=== PATIENT | male | born 1950 | race Caucasian/White ===

== ENCOUNTER 2021-02-02 10:15 | Outpatient (REF) | payer MEDICARE, BC, SELFPAY | END 2021-02-02 10:16 | disposition home or self-care (01) | LOC: HO.HMGCX 10:15 | PROVIDERS: Visit Provider Internal Medicine | DX: Z20.822 Contact with and (suspected) exposure to COVID-19 (principal) | CPT/HCPCS: 36415; C9803; U0003; U0005 ==

== ENCOUNTER 2023-05-08 00:36 | Emergency (ER) | payer MEDICARE, BC, SELFPAY ==
[2023-05-08 01:32] VITALS: BP 157/67; PULSE 59; RESP 16; TEMP 36.5; O2SAT 96; BMI 24.7
--- NOTE | 2023-05-08 01:44 | PC.NURSE ---
Pt comes in complaining of blurriness in the right eye, stated he noticed it when he got home from work around 11:30 PM. Visual acuity test was done resulting in 20/40 in the right eye, 20/25 in the left eye. Pt denies pain, eyes are PERRLA. Pt reported he has a hx of cataracts sx. When I went to talk to pt prior to provider seeing him, pt stated he wanted to leave and he will call his primary care doctor on Tuesday. It was explained to the pt that it is possible there could be an underlying problem, such as a TIA, and it is recommended he stay to be seen by a provider. Pt stated he still wanted to leave and collected his belongings. Pt stated he understands the risks and he will call his primary care. 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
== END 2023-05-08 01:53 | disposition left against medical advice (07) ==
PROVIDERS: Emergency Provider Emergency Medicine
DX: H57.11 Ocular pain, right eye (principal)
CPT/HCPCS: 99281

== ENCOUNTER 2023-11-12 09:11 | Emergency (ER) | payer MEDICARE, BC, SELFPAY ==
--- NOTE | ~2023-11-12 | XR_ITS ---
EXAMINATION: XR CHEST CLINICAL INFORMATION: Cough. COMPARISON: Most recent chest radiograph dated 01/03/2020. TECHNIQUE: 2 views of the chest were obtained. FINDINGS: Faint, somewhat linear opacity within the periphery of the right lung base, favored to represent atelectasis. No large, confluent airspace consolidation. No pleural effusion or pneumothorax. Stable cardiomediastinal silhouette. XR/XR chest 2V IMPRESSION: Faint, somewhat linear opacity within the periphery of the right lung base, favored to represent atelectasis.
[2023-11-12 09:30] VITALS: BP 133/85; PULSE 58; RESP 20; TEMP 36.7; O2SAT 97; BMI 24.2
[2023-11-12 10:19] LABS: COVID-19 Test Negative (Negative); IDNOW Serial# 08D9AD1C; IDNOW Serial# BCCEAD1C; Influenza A Negative (Negative); Influenza B2 Negative (Negative)
--- NOTE | 2023-11-12 10:28 | ED_ITS ---
HPI - URI/Sore Throat General Chief Complaint: Upper Respiratory Symptoms Stated Complaint: cold like symptoms Time Seen by Provider: 11/12/23 09:55 Source: patient Mode of arrival: ambulatory Limitations: no limitations History of Present Illness HPI Narrative: patient is a 73-year-old male who presents emergency department for evaluation of Four days with nonproductive cough, intermittent shortness of breath, body aches, tightness in the upper chest only during episodes of coughing. He denies any known sick contacts. He denies any fevers or chills. Denies headache, dizziness, neck pain, neck stiffness, nausea, vomiting, abdominal pain, numbness or tingling of the extremities, pedal edema, orthopnea, PND. Related Data Previous Rx's Medication Instructions Recorded albuterol sulfate 90 mcg/actuation 2 puff inhalation Q4-6H PRN 11/12/23 aerosol inhaler shortness of breath or wheezing #6.7 grams azithromycin 250 mg tablet See Rx Instructions PO .COMPLEX #6 11/12/23 tabs benzonatate 100 mg capsule 100 mg PO TID PRN cough #20 caps 11/12/23 Allergies Allergy/AdvReac Type Severity Reaction Status Date / Time No Known Allergies Allergy Verified 11/12/23 09:32 [No Known Allergies*] Review of Systems Review of Systems: Yes all other systems are reviewed and are negative [facility] Past Medical History Attestation statement: The following information was validated with the patient. Source: old records reviewed Social History Social History Advance Directives: No Advance Directives Information Provided: No Physical Exam Vital Signs: Vital Signs: Last Vital Signs Temp 98.0 F 11/12/23 09:30 Pulse 58 11/12/23 09:30 Resp 20 11/12/23 09:30 BP 133/85 11/12/23 09:30 Pulse Ox 97 11/12/23 09:30 O2 Del Method Room Air 11/12/23 09:30 BMI result Body Mass Index 24.2 Appearance: Alert.?Oriented to person, place and time. No acute distress.?Normal affect. Eyes: Pupils equal, round and reactive to light.? ENT: TM normal bilaterally. Pharynx normal.?? Neck: Normal inspection.? Neck supple.??No cervical adenopathy CVS: Heart sounds normal. Normal heart rate and rhythm.? Pulses normal.?? Respiratory: No respiratory distress.? Lung sounds clear to auscultation bilaterally?? Abdomen: Soft and non-tender. Normoactive bowel sounds. Skin: Skin warm and dry.? Normal skin color.? ? Extremities: No lower extremity edema.? Neuro: Moves all extremities spontaneously. Sensation intact bilaterally. No motor deficits. Ambulates with normal steady gait. Medical Decision Making Medical Decision Making MDM Narrative: Patient is a 73-year-old male with past medical history of hypertension, hyperlipidemia, BPH, presenting for evaluation of upper respiratory symptoms. COVID-19 testing negative. Influenza testing negative. chest x-ray reveals no compelling evidence of pneumonia. At this time history and physical exam not consistent with CHF/ACS/PE/pneumonia. Well-appearing, nontoxic, afebrile, no tachycardia or tachypnea/hypoxia. Speaking clear full sentences, ambulatory with steady gait. symptoms most consistent with viral illness versus bronchitis. Discussed conservative treatment including rest, hydration, Tylenol/ibuprofen as needed for fever and body aches, saline nasal spray, humidifier, [id number] cold medication. Advised to follow-up with primary care provider as needed, discussed reasons to return back to the emergency department. All questions were answered. Patient discharged home in stable condition. Differential Diagnosis Differential Diagnoses: The differential diagnosis associated with the presentation includes ( as noted above) Admission/Observation Consideration of admission/observation: Escalation of care including admission/observation considered ( see narrative above) Lab Data MDM Lab Attestation statement: I reviewed the patient's lab results. ( see narrative above) Labs: Lab Results 11/12/23 Range/Units 09:58 COVID-19 (MONY) Negative (Negative) COVID-19 Clin Com See Note Influenza Type A (LETICIA) Negative (Negative) Influenza Type B (LETICIA) Negative (Negative) Influenza A & B Note See Note Independent Interpretation I performed an independent interpretation of an: Plain X-Ray ( I personally interpreted chest x-ray and agree with radiologist impression.) Radiology Impression Discussion of test interpretation with radiology: I have reviewed the radiologist's reading. Radiologist Impression: XR/XR chest 2V IMPRESSION: Faint, somewhat linear opacity within the periphery of the right lung base, favored to represent atelectasis. External Record Review External record reviewed: Outpatient record Discharge Plan Discharge Clinical Impression: Upper respiratory infection Patient Disposition: Home, Self-Care Instructions: Upper Respiratory Infection (ED) Additional Instructions: Be sure to rest, stay well hydrated drinking plenty of fluids, eat small frequent meals. Tylenol/ibuprofen can be used as needed for fever/pain. Nnve-whq-nzgyygi cold medications may be helpful as well for symptoms. Saline nasal spray, humidifier may be helpful for nasal congestion. You may return to the emergency department with any new or worsening symptoms or concerns. Follow-up with your primary care provider as needed. Prescriptions: New azithromycin 250 mg tablet See Rx Instructions .ROUTE .COMPLEX Qty: 6 0RF Rx Instructions: For 250 mg dose pack: take 500 mg today (day 1), then 250 mg for 4 days (days 2-5) albuterol sulfate 90 mcg/actuation HFA aerosol inhaler 2 puff inhalation Q4-6H PRN (Reason: shortness of breath or wheezing) Qty: 6.7 0RF benzonatate 100 mg capsule 100 mg PO TID PRN (Reason: cough) Qty: 20 0RF Referrals: Physician,Unknown J [Primary Care Provider] - Interventions: ED Discharge Assessment Last Done: 11/12/23 11:41 Discharge Date/Time: 11/12/23 11:42
== END 2023-11-12 11:42 | disposition home or self-care (01) ==
PROVIDERS: Emergency Provider Emergency Medicine
DX: J06.9 Acute upper respiratory infection, unspecified (principal); R05.9 Cough, unspecified; R06.02 Shortness of breath; M79.10 Myalgia, unspecified site; R07.89 Other chest pain; Z11.52 Encounter for screening for COVID-19; Z20.822 Contact with and (suspected) exposure to COVID-19
CPT/HCPCS: 71046; 87502; 87635; 99283